=== PATIENT | male | born 1995 | race African-American/Black ===

== ENCOUNTER 2018-10-15 17:44 | Emergency (ER) | payer MEDICAID, MEDICARE ==
[2018-10-15] MEDS ORDERED: Ibuprofen 800 MG TAB ONE (18:02)
--- NOTE | 2018-10-15 18:31 | RAD ---
LEFT KNEE FOUR VIEWS: 10/15/2018 HISTORY: Injury. Pain. FINDINGS: No knee joint effusion, fracture, or evidence of dislocation. IMPRESSION: No acute findings. POS: [facility]
== END 2018-10-15 19:37 | disposition home or self-care (01) ==
LOC: ERS 17:44
DX: S83.92XA Sprain of unspecified site of left knee, initial encounter (principal); J45.909 Unspecified asthma, uncomplicated; I10 Essential (primary) hypertension; W51.XXXA Accidental striking against or bumped into by another person, initial encounter; Y93.61 Activity, american tackle football

== ENCOUNTER 2020-05-23 19:00 | Outpatient (CLI) | payer MEDICARE | END 2020-05-23 19:01 | disposition home or self-care (01) | LOC: SLEEPLAB 19:00 | PROVIDERS: ATTEND Nurse Practitioner Family | DX: G47.33 Obstructive sleep apnea (adult) (pediatric) (principal); R06.83 Snoring; I10 Essential (primary) hypertension; J45.909 Unspecified asthma, uncomplicated; G47.00 Insomnia, unspecified; G47.10 Hypersomnia, unspecified; F84.0 Autistic disorder; E66.9 Obesity, unspecified; Z68.44 Body mass index [BMI] 60.0-69.9, adult | CPT/HCPCS: 95811 ==